=== PATIENT | female | born 1980 | race American Indian/Alaskan Native ===

== ENCOUNTER 2016-12-11 23:52 | Emergency (ER) | payer SELFPAY ==
[2016-12-12 02:30] LABS: Basophils % (Auto) 0.3 % (0.0-1.8); Eosinophils % (Auto) 0.1 % (0.0-4.3); Hematocrit 39.2 % (30.3-42.9); Hemoglobin 12.9 gm/dl (10.1-14.3); Mean Corpuscular HGB Conc 33 % (30-34); Mean Corpuscular Hemoglobin 30 pg (28-32); Mean Corpuscular Volume 92 fl (79-97); Platelet Count 304 K/mm3 (140-440); Red Blood Count 4.26 M/mm3 (3.65-5.03); Red Cell Distribution Width 15.6 % (13.2-15.2); White Blood Count 13.3 K/mm3 (4.5-11.0)
[2016-12-12 02:51] LABS: Alanine Aminotransferase 11 units/L (7-56); Albumin 4.3 g/dL (3.9-5); Albumin/Globulin Ratio 1.3 %; Alkaline Phosphatase 75 units/L (35-129); Anion Gap 20 mmol/L; Bilirubin,Total 0.6 mg/dL (0.1-1.2); Blood Urea Nitrogen 15 mg/dL (7-17); Calcium 8.9 mg/dL (8.4-10.2); Carbon Dioxide 21 mmol/L (22-30); Chloride 100.6 mmol/L (98-107); Glucose 107 mg/dL (65-100); Lipase 31 units/L (13-60); Potassium 3.3 mmol/L (3.6-5.0); Sodium 138 mmol/L (137-145); Total Protein 7.6 g/dL (6.3-8.2)
[2016-12-12 03:40] VITALS: BP 123/87
[2016-12-12 05:23] LABS: Bilirubin,Urine NEG (Negative); Blood,Urine SM (Negative); Ketones,Urine TR mg/dL (Negative); Leukocyte Esterase,Urine NEG (Negative); Mucus,Urine FEW /HPF; Nitrite,Urine NEG (Negative); Protein,Urine <15 mg/dL mg/dL (Negative); Urobilinogen,Urine < 2.0 mg/dL (<2.0)
== END 2016-12-12 06:37 | disposition left against medical advice (07) ==
LOC: ED 23:52
DX: R11.0 Nausea (principal); M79.642 Pain in left hand; M79.641 Pain in right hand; Z53.21 Procedure and treatment not carried out due to patient leaving prior to being seen by health care provider
CPT/HCPCS: 36415; 80048; 80053; 81001; 83690; 84484; 85025; 93005; 93010

== ENCOUNTER 2019-08-11 11:30 | Emergency (ER) | payer MEDICARE ==
[2019-08-11] MEDS ORDERED: KETOROLAC 30 MG/1 ML INJ IV ONE (11:49)
[2019-08-11] MEDS ORDERED: dexAMETHasone 20 MG/5 ML VIAL IV ONE (11:49)
[2019-08-11] MEDS ORDERED: SODIUM CHLORIDE 0.9% 1000 ML 1,000 ML IV ONE (11:49)
[2019-08-11] MEDS ORDERED: MORPHINE 4 MG/1 ML INJ IV ONE ×2 (11:49→14:14)
[2019-08-11 13:18] LABS: Basophils % (Auto) 0.4 % (0.0-1.8); Eosinophils % (Auto) 0.5 % (0.0-4.3); Hematocrit 39.6 % (30.3-42.9); Lymphocytes # (Auto) 1.7 K/mm3 (1.2-5.4); Lymphocytes % (Auto) 32.8 % (13.4-35.0); Mean Corpuscular HGB Conc 33 % (30-34); Mean Corpuscular Volume 93 fl (79-97); Monocytes # (Auto) 0.3 K/mm3 (0.0-0.8); Monocytes % (Auto) 6.4 % (0.0-7.3); Platelet Count 224 K/mm3 (140-440); Red Blood Count 4.26 M/mm3 (3.65-5.03); Red Cell Distribution Width 18.5 % (13.2-15.2)
[2019-08-11 13:44] LABS: BUN/Creatinine Ratio 17; Blood Urea Nitrogen 12 mg/dL (7-17); Calcium 9.6 mg/dL (8.4-10.2); Hemolysis Index 4
[2019-08-11] MEDS ORDERED: ONDANSETRON 4 MG/2 ML INJ IV ONE (14:05)
[2019-08-11] MEDS ORDERED: ONDANSETRON 4 MG/2 ML INJ ONE (14:08)
--- NOTE | 2019-08-11 14:14 | Emergency Department Report ---
ED General Adult HPI - General Chief complaint: Medical Clearance Stated complaint: ALLERGIC REACTION Time Seen by Provider: 08/11/19 11:49 Source: patient, EMS Mode of arrival: Stretcher Limitations: No Limitations - History of Present Illness Initial comments: Patient is a 38-year-old female who is presenting with difficulty swallowing. States for the past 2 days she's been unable to eat or drink secondary to pain with swallowing. Patient states that swallowing her own spit is painful as well. Patient is having difficult time speaking. Patient denies fevers chills nausea vomiting. She does have some pain with bending her head forward. Patient states the pain is 10 severity. Severity scale (0 -10): 5 - Related Data Home Medications Medication Instructions Recorded Confirmed Last Taken Hyoscyamine Subl [Levsin Sl 0.125 0.125 mg PO Q4-6H PRN 08/04/16 08/20/16 08/19/16 TAB] Linaclotide [Linzess] 145 mcg PO QDAY 08/04/16 08/20/16 08/19/16 Omeprazole 20 mg PO BID 08/04/16 08/20/16 08/19/16 Previous Rx's Medication Instructions Recorded Last Taken Type Docusate Sodium [Colace] 100 mg PO BID #60 capsule 08/04/16 08/19/16 Rx HYDROcodone/APAP 5-325 [Percy 1 - 2 each PO Q6HR PRN #14 tablet 08/04/16 08/18/16 Rx 5/325] Promethazine [Phenergan] 25 mg OR Q6HR PRN #10 supp.rect 08/04/16 08/19/16 07:00 Rx Clindamycin [Clindamycin CAP] 300 mg PO Q8H #21 cap 08/11/19 Unknown Rx HYDROcodone/ACETAMINOPHEN 15 ml PO Q6H PRN #150 solution 08/11/19 Unknown Rx [Hydrocodon-Acetamin 7.5-325/15] prednisoLONE [Prednisolone] 45 mg PO DAILY 5 Days solution 08/11/19 Unknown Rx Allergies Allergy/AdvReac Type Severity Reaction Status Date / Time Penicillins Allergy Swelling Verified 08/04/16 13:48 shellfish derived Allergy Swelling Verified 08/20/16 07:44 ED Review of Systems ROS: Stated complaint: ALLERGIC REACTION Other details as noted in HPI Comment: All other systems reviewed and negative ED Past Medical Hx - Past Medical History Previous Medical History?: Yes Hx of Cancer: Yes (endometrial cancer) Hx Headaches / Migraines: Yes Hx Tuberculosis: No Additional medical history: Constipation, H. Pylori, Uterine Cancer - Surgical History Additional Surgical History: Hysterectomy - Social History Smoking Status: Never Smoker Substance Use Type: None - Medications Home Medications: Home Medications Medication Instructions Recorded Confirmed Last Taken Type Docusate Sodium [Colace] 100 mg PO BID #60 capsule 08/04/16 08/20/16 08/19/16 Rx HYDROcodone/APAP 5-325 [Percy 1 - 2 each PO Q6HR PRN #14 tablet 08/04/16 08/20/16 08/18/16 Rx 5/325] Hyoscyamine Subl [Levsin Sl 0.125 0.125 mg PO Q4-6H PRN 08/04/16 08/20/16 08/19/16 History TAB] Linaclotide [Linzess] 145 mcg PO QDAY 08/04/16 08/20/16 08/19/16 History Omeprazole 20 mg PO BID 08/04/16 08/20/16 08/19/16 History Promethazine [Phenergan] 25 mg OR Q6HR PRN #10 supp.rect 08/04/16 08/20/1607/25 07:00 Rx Clindamycin [Clindamycin CAP] 300 mg PO Q8H #21 cap 08/11/19 Unknown Rx HYDROcodone/ACETAMINOPHEN 15 ml PO Q6H PRN #150 solution 08/11/19 Unknown Rx [Hydrocodon-Acetamin 7.5-325/15] prednisoLONE [Prednisolone] 45 mg PO DAILY 5 Days solution 08/11/19 Unknown Rx ED Physical Exam - General Limitations: No Limitations General appearance: alert, in no apparent distress - Head Head exam: Present: atraumatic, normocephalic - Eye Eye exam: Present: normal appearance - ENT ENT exam: Present: mucous membranes moist - Expanded ENT Exam Expanded Mouth exam: Present: muffled voice. Absent: drooling, tongue elevation Throat exam: Positive: tonsillomegaly, other (swollen uvula without midline shift) - Neck Neck exam: Present: normal inspection, lymphadenopathy - Respiratory Respiratory exam: Present: normal lung sounds bilaterally. Absent: respiratory distress, wheezes, rales, rhonchi - Cardiovascular Cardiovascular Exam: Present: regular rate, normal rhythm, normal heart sounds. Absent: systolic murmur, diastolic murmur, rubs, gallop - GI/Abdominal GI/Abdominal exam: Present: soft, normal bowel sounds. Absent: distended, tenderness, guarding, rebound - Extremities Exam Extremities exam: Present: normal inspection - Back Exam Back exam: Present: normal inspection - Neurological Exam Neurological exam: Present: alert, oriented X3 - Psychiatric Psychiatric exam: Present: normal affect, normal mood - Skin Skin exam: Present: warm, dry, intact, normal color. Absent: rash ED Course Vital Signs 08/11/19 08/11/19 08/11/19 11:45 12:51 14:23 Temperature 97.9 F Pulse Rate 121 H 129 H Respiratory 15 12 15 Rate Blood Pressure 133/89 Blood Pressure 134/92 [Left] O2 Sat by Pulse 99 99 Oximetry ED Medical Decision Making - Lab Data Result diagrams: 08/11/19 12:27 08/11/19 12:27 - Radiology Data CT neck w con INDICATION / CLINICAL INFORMATION: 38 years Female; pain with swollowing. TECHNIQUE: Contiguous thin cut axial images obtained through the neck following IV contrast. Sagittal and coronal reconstructions performed by the technologist. All CT scans at this location are performed using CT dose reduction for ALARA by means of automated exposure control. COMPARISON: None available. FINDINGS: Usual artifact is seen centering over the soft palate. PHARYNGEAL MUCOSA: Normal nasopharynx, oropharynx and hypopharynx ORAL CAVITY: Normal including and floor of mouth. Tonsillar fossae is normal bilaterally. Airway is normal. Epiglottis is normal. Though artifacts is seen around the uvula, it appears normal. LARYNX: Supraglottic, glottic and subglottic larynx are normal LYMPH NODES: No suspicious lymph nodes SALIVARY GLANDS: Parotid, submandibular, and visualized sublingual glands are within normal limits. THYROID GLAND: Unremarkable. PARANASAL SINUSES: Visualized paranasal sinuses and mastoid air cells are essentially clear. SPINE: No significant abnormality of the cervical spine appreciated. BLOOD VESSELS IN THE CAROTID SPACE: Vascular structures are grossly normal in appearance. OTHER: Visualized lung apices are clear Surrounding soft tissues are otherwise grossly normal. IMPRESSION: 1. Unusual artifact in the water cavities obscuring the details; however, both faucial tonsils are normal; airway is not compromised. - Medical Decision Making She was given steroids and given meds for pain management. The patient is able to speak at the time of disposition. Patient clinically has a uvulitis. Vision started on clindamycin and she can be discharged home. Critical care attestation.: If time is entered above; I have spent that time in minutes in the direct care of this critically ill patient, excluding procedure time. ED Disposition Clinical Impression: Uvulitis Disposition: DC-01 TO HOME OR SELFCARE Is pt being admited?: No Does the pt Need Aspirin: No Condition: Stable Instructions: Uvulitis (ED) Referrals: PRIMARY CARE, [Primary Care Provider] - 3-5 Days Time of Disposition: 16:10
--- NOTE | 2019-08-11 15:26 | Cat Scan Report ---
CT neck w con INDICATION / CLINICAL INFORMATION: 38 years Female; pain with swollowing. TECHNIQUE: Contiguous thin cut axial images obtained through the neck following IV contrast. Sagittal and olson l reconstructions performed by the technologist. All CT scans at this location are performed using CT dose reduction for ALARA by means of automated exposure control. COMPARISON: None available. FINDINGS: Usual artifact is seen centering over the soft palate. PHARYNGEAL MUCOSA: Normal nasopharynx, oropharynx and hypopharynx ORAL CAVITY: Normal including and floor of mouth. Tonsillar fossae is normal bilaterally. Airway is n ormal. Epiglottis is normal. Though artifacts is seen around the uvula, it appears normal. LARYNX: Supraglottic, glottic and subglottic larynx are normal LYMPH NODES: No suspicious lymph nodes SALIVARY GLANDS: Parotid, submandibular, and visualized sublingual glands are within normal limits. THYROID GLAND: Unremarkable. PARANASAL SINUSES: Visualized paranasal sinuses and mastoid air cells are essentially clear. SPINE: No significant abnormality of the cervical spine appreciated. BLOOD VESSELS IN THE CAROTID SPACE: Vascular structures are grossly normal in appearance. OTHER: Visualized lung apices are clear Surrounding soft tissues are otherwise grossly normal. IMPRESSION: 1. Unusual artifact in the water cavities obscuring the details; however, both faucial tonsils are no rmal; airway is not compromised. Signer Name: Schuyler Wang MD Signed: 08/11/2019 3:22 PM Workstation Name: [id number]
[2019-08-11] MEDS ORDERED: CLINDAMYCIN 300 MG CAP PO ONE (16:08)
[2019-08-11 17:28] VITALS: BP 111/76
== END 2019-08-11 17:35 | disposition home or self-care (01) ==
LOC: ED 11:30
DX: K12.2 Cellulitis and abscess of mouth (principal); Z85.42 Personal history of malignant neoplasm of other parts of uterus; Z90.710 Acquired absence of both cervix and uterus; Z79.899 Other long term (current) drug therapy; Z88.0 Allergy status to penicillin; Z91.013 Allergy to seafood
CPT/HCPCS: 36415; 70491; 80048; 85025; 86308; 87116; 87430; 96374; 96375; 96376; 99285; J1100; J1642; J1885; J2270; J2405; J7030; Q9967

== ENCOUNTER 2019-11-24 15:07 | Emergency (ER) | payer MEDICARE ==
[2019-11-24 15:33] VITALS: BP 112/79
--- NOTE | 2019-11-24 15:36 | Emergency Department Report ---
Blank Doc - Documentation Documentation: 39-year-old female that presents with abdominal pain with n/v. This initial assessment/diagnostic orders/clinical plan/treatment(s) is/are subject to change based on patient's health status, clinical progression and re- assessment by fellow clinical providers in the ED. Further treatment and workup at subsequent clinical providers discretion. Patient/guardians urged not to elope from the ED as their condition may be serious if not clinically assessed and managed. Initial orders include: 1- Patient sent to [facility] for further evaluation and treatment 2- labs 3- UA
[2019-11-24 16:27] LABS: Basophils # (Auto) 0.1 K/mm3 (0.0-0.1); Eosinophils # (Auto) 0.3 K/mm3 (0.0-0.4); Eosinophils % (Auto) 2.5 % (0.0-4.3); Hematocrit 33.8 % (30.3-42.9); Hemoglobin 10.7 gm/dl (10.1-14.3); Lymphocytes # (Auto) 1.5 K/mm3 (1.2-5.4); Lymphocytes % (Auto) 14.7 % (13.4-35.0); Mean Corpuscular HGB Conc 32 % (30-34); Mean Corpuscular Volume 95 fl (79-97); Monocytes % (Auto) 10.2 % (0.0-7.3); Platelet Count 409 K/mm3 (140-440); Red Blood Count 3.57 M/mm3 (3.65-5.03)
[2019-11-24 16:28] LABS: Red Cell Distribution Width 20.5 % (13.2-15.2)
[2019-11-24 16:50] LABS: Alanine Aminotransferase 12 units/L (7-56); Albumin 3.7 g/dL (3.9-5); BUN/Creatinine Ratio 15; Blood Urea Nitrogen 21 mg/dL (7-17); Calcium 8.6 mg/dL (8.4-10.2); Hemolysis Index 4
[2019-11-24 17:09] LABS: Bilirubin,Urine NEG (Negative); Blood,Urine NEG (Negative); Color,Urine Yellow (Yellow); Mucus,Urine FEW /HPF; Urobilinogen,Urine < 2.0 mg/dL (<2.0)
[2019-11-24] MEDS ORDERED: ONDANSETRON 4 MG/2 ML INJ IV ONE (19:23)
[2019-11-24] MEDS ORDERED: SODIUM CHLORIDE 0.9% 1000 ML 1,000 ML IV ONE (19:23)
[2019-11-24] MEDS ORDERED: ONDANSETRON 4 MG/2 ML INJ ONE (21:58)
[2019-11-24] MEDS ORDERED: oxyCODONE /ACETAMINOPHEN 5-325MG TAB PO ONE (22:32)
--- NOTE | 2019-11-25 00:38 | Emergency Department Report ---
ED N/V/D HPI - General Chief complaint: Nausea/Vomiting/Diarrhea Stated complaint: CLAUDIO Time Seen by Provider: 11/24/19 15:36 Source: patient, EMS Mode of arrival: Stretcher Limitations: No Limitations - History of Present Illness Initial comments: Patient is a 39-year-old -[place] female with a history of PE and on Eliquis, endometrial cancer metastatic to the lung and who is currently on chemotherapy presents to the ED with persistent nausea and vomiting intermittently for the last 2 days. Patient states that she has been taking Zofran at home as well as Phenergan with no relief. Patient states that in the last 6 hours she has not been able to keep anything down because of persistent nausea and vomiting. Patient states that she woke up about 2 hours prior to arrival in the ED to a bed with blood, having had nausea and vomiting with last sleep or having coughed up some blood while she was asleep. Patient denies abdominal pain, diarrhea, dizziness, fever, chills, cough, shortness of breath, chest pain, dysuria, urinary frequency and urgency, change in vision or syncope. MD complaint: nausea, vomiting, other (metastatic endometrial cancer to the lung with hemoptysis; on Eloquis for recent PE) -: Sudden, days(s) (2) Description of Vomiting: food contents, watery Description of Diarrhea: other (None) Associated Abdominal Pain: No Location: diffuse Radiation: none Severity: moderate Pain Scale: 0 Quality: dull Consistency: intermittent Improves with: none Worsens with: none Context: other (on chemotherapy for Metastatic cancer) Associated Symptoms: denies other symptoms, loss of appetite, nausea/vomiting. denies: myalgias, chest pain, cough, diaphoresis, fever/chills, headaches, malaise, rash, dysuria, shortness of breath, syncope - Related Data Home Medications Medication Instructions Recorded Confirmed Last Taken Hyoscyamine Subl [Levsin Sl 0.125 0.125 mg PO Q4-6H PRN 08/04/16 10/14/19 08/19/16 TAB] Linaclotide [Linzess] 145 mcg PO QDAY 08/04/16 10/14/19 08/19/16 Omeprazole 20 mg PO BID 08/04/16 10/14/19 08/19/16 Previous Rx's Medication Instructions Recorded Last Taken Type Docusate Sodium [Colace CAP] 100 mg PO BID #60 capsule 08/04/16 08/19/16 Rx HYDROcodone/APAP 5-325 [Winters 1 - 2 each PO Q6HR PRN #14 tablet 08/04/16 08/18/16 Rx 5-325 mg TAB] Promethazine [Phenergan SUPPOS] 25 mg MO Q6HR PRN #10 supp.rect 08/04/16 08/19/16 07:00 Rx HYDROcodone/ACETAMINOPHEN 15 ml PO Q6H PRN #150 solution 08/11/19 Unknown Rx [Hydrocodone-Acetamn 7.5-325/15] Apixaban [Eliquis] 5 mg PO BID #60 tablet 10/15/19 Unknown Rx Azithromycin [Zithromax Z-BARRETT] 250 mg PO DAILY #2 tablet 10/15/19 Unknown Rx Cefdinir 300 mg PO BID #8 capsule 10/15/19 Unknown Rx oxyCODONE /ACETAMINOPHEN [Percocet 1 tab PO Q6HR PRN #30 tablet 10/17/19 Unknown Rx 5/325] Famotidine [Pepcid] 20 mg PO Q12H #30 tablet 11/25/19 Unknown Rx Promethazine [Phenergan] 25 mg PO Q6HR PRN #30 tab 11/25/19 Unknown Rx Promethazine [Phenergan] 25 mg MO Q6HR PRN #24 supp.rect 11/25/19 Unknown Rx Allergies Allergy/AdvReac Type Severity Reaction Status Date / Time Penicillins Allergy Swelling Verified 08/04/16 13:48 shellfish derived Allergy Swelling Verified 08/20/16 07:44 ED Review of Systems ROS: Stated complaint: CLAUDIO Other details as noted in HPI Constitutional: malaise. denies: chills, fever Eyes: denies: eye pain, eye discharge, vision change ENT: denies: ear pain, throat pain Respiratory: cough, wheezing. denies: shortness of breath Cardiovascular: denies: chest pain, palpitations Endocrine: no symptoms reported Gastrointestinal: nausea, vomiting. denies: abdominal pain, diarrhea Genitourinary: denies: urgency, dysuria, discharge Musculoskeletal: denies: back pain, joint swelling, arthralgia Skin: denies: rash, lesions Neurological: denies: headache, weakness, paresthesias Psychiatric: denies: anxiety, depression Hematological/Lymphatic: denies: easy bleeding, easy bruising ED Past Medical Hx - Past Medical History Previous Medical History?: Yes Hx Congestive Heart Failure: No Hx Diabetes: No Hx of Cancer: Yes (Endometrial cancer with mets) Hx Headaches / Migraines: Yes Hx Asthma: No Hx COPD: No Hx Tuberculosis: No Additional medical history: Constipation, H. Pylori, Uterine Cancer - Surgical History Past Surgical History?: Yes Additional Surgical History: Hysterectomy - Social History Smoking Status: Current Every Day Smoker Substance Use Type: None - Medications Home Medications: Home Medications Medication Instructions Recorded Confirmed Last Taken Type Docusate Sodium [Colace CAP] 100 mg PO BID #60 capsule 08/04/16 10/14/19 08/19/16 Rx HYDROcodone/APAP 5-325 [Winters 1 - 2 each PO Q6HR PRN #14 tablet 08/04/16 10/14/19 08/18/16 Rx 5-325 mg TAB] Hyoscyamine Subl [Levsin Sl 0.125 0.125 mg PO Q4-6H PRN 08/04/16 10/14/19 08/19/16 History TAB] Linaclotide [Linzess] 145 mcg PO QDAY 08/04/16 10/14/19 08/19/16 History Omeprazole 20 mg PO BID 08/04/16 10/14/19 08/19/16 History Promethazine [Phenergan SUPPOS] 25 mg MO Q6HR PRN #10 supp.rect 08/04/16 10/14/19 08/19/16 07:00 Rx HYDROcodone/ACETAMINOPHEN 15 ml PO Q6H PRN #150 solution 08/11/19 10/14/19 Unknown Rx [Hydrocodone-Acetamn 7.5-325/15] Apixaban [Eliquis] 5 mg PO BID #60 tablet 10/15/19 Unknown Rx Azithromycin [Zithromax Z-BARRETT] 250 mg PO DAILY #2 tablet 10/15/19 Unknown Rx Cefdinir 300 mg PO BID #8 capsule 10/15/19 Unknown Rx oxyCODONE /ACETAMINOPHEN [Percocet 1 tab PO Q6HR PRN #30 tablet 10/17/19 Unknown Rx 5/325] Famotidine [Pepcid] 20 mg PO Q12H #30 tablet 11/25/19 Unknown Rx Promethazine [Phenergan] 25 mg PO Q6HR PRN #30 tab 11/25/19 Unknown Rx Promethazine [Phenergan] 25 mg MO Q6HR PRN #24 supp.rect 11/25/19 Unknown Rx ED Physical Exam - General Limitations: No Limitations General appearance: alert, in no apparent distress - Head Head exam: Present: atraumatic, normocephalic, normal inspection - Eye Eye exam: Present: normal appearance, PERRL, EOMI - ENT ENT exam: Present: normal exam, normal orophraynx, mucous membranes moist, TM's normal bilaterally, normal external ear exam - Neck Neck exam: Present: normal inspection, full ROM. Absent: lymphadenopathy - Respiratory Respiratory exam: Present: normal lung sounds bilaterally. Absent: respiratory distress, wheezes, rales, chest wall tenderness, accessory muscle use, decreased breath sounds, prolonged expiratory - Cardiovascular Cardiovascular Exam: Present: regular rate, normal rhythm, normal heart sounds. Absent: systolic murmur, diastolic murmur, rubs, gallop - GI/Abdominal GI/Abdominal exam: Present: soft, normal bowel sounds. Absent: tenderness, guarding, rebound - Extremities Exam Extremities exam: Present: normal inspection, full ROM, normal capillary refill - Back Exam Back exam: Present: normal inspection, full ROM. Absent: tenderness, CVA tenderness (L), muscle spasm - Neurological Exam Neurological exam: Present: alert, oriented X3, CN II-XII intact, normal gait, reflexes normal - Psychiatric Psychiatric exam: Present: normal affect, normal mood - Skin Skin exam: Present: warm, dry, intact, normal color. Absent: rash ED Course Vital Signs 11/24/19 11/24/19 15:29 15:36 Temperature 97.9 F 97.9 F Pulse Rate 98 H 93 H Respiratory 18 18 Rate Blood Pressure 112/79 112/79 O2 Sat by Pulse 94 96 Oximetry ED Medical Decision Making - Lab Data Result diagrams: 11/24/19 16:18 11/24/19 16:18 - Medical Decision Making This is a 39-year-old female with a history of PE and on Eliquis, also history of endometrial cancer metastatic to the lung and who presents to the ED with intractable nausea and vomiting for the last 2 days. In the ED, patient is alert and oriented x3 and is not in any distress. Lab test results were reviewed and are all nonactionable including urinalysis. Patient received normal saline 1 L IV bolus with Zofran. On reevaluation, patient nausea and vomiting has resolved and patient resting comfortably and was able to keep all oral fluids. Patient was discharged home and advised to follow-up with her primary care physician or oncologist in 5 to 7 days for reevaluation or return to the ED immediately if symptoms get worse. - Differential Diagnosis Dehydration; GERD; UTI; Viral Gastroentiritis Critical care attestation.: If time is entered above; I have spent that time in minutes in the direct care of this critically ill patient, excluding procedure time. ED Disposition Clinical Impression: Chemotherapy-induced nausea and vomiting Disposition: - TO HOME OR SELFCARE Is pt being admited?: No Does the pt Need Aspirin: No Condition: Stable Instructions: Acute Nausea and Vomiting (ED) Additional Instructions: Take medication as needed for nausea and vomiting, drink plenty fluids and follow-up with your primary care physician or your oncologist in 5 to 7 days for reevaluation. Return to the ED immediately if symptoms get worse. Prescriptions: Famotidine [Pepcid] 20 mg PO Q12H #30 tablet Promethazine [Phenergan] 25 mg PO Q6HR PRN #30 tab PRN Reason: Nausea Promethazine [Phenergan] 25 mg MO Q6HR PRN #24 supp.rect PRN Reason: Vomiting Referrals: KERRIE GARZA MD [Primary Care Provider] - 3-5 Days Time of Disposition: 00:39 Print Language: DIVEHI
== END 2019-11-25 00:45 | disposition home or self-care (01) ==
LOC: ED 15:07
DX: R11.2 Nausea with vomiting, unspecified (principal); G43.909 Migraine, unspecified, not intractable, without status migrainosus; F17.200 Nicotine dependence, unspecified, uncomplicated; Z90.710 Acquired absence of both cervix and uterus; Z79.899 Other long term (current) drug therapy; Z88.0 Allergy status to penicillin; Z91.013 Allergy to seafood
CPT/HCPCS: 36415; 80053; 81001; 83690; 84703; 85025; 96361; 96374; 99284; J2405; J7030